=== PATIENT | female | born 1995 | race American Indian/Alaskan Native ===

== ENCOUNTER 2018-12-05 19:05 | Emergency (ER) | payer MEDICAID ==
--- NOTE | 2018-12-05 19:35 | Emergency Department Report ---
Blank Doc - Documentation Documentation: This is a 23-year-old female that presents with pelvic pain and vaginal bleedi ng. Stated is but is not sure how long she is. This initial assessment/diagnostic orders/clinical plan/treatment(s) is/are subject to change based on patient's health status, clinical progression and re- assessment by fellow clinical providers in the ED. Further treatment and workup at subsequent clinical providers discretion. Patient/guardians urged not to elope from the ED as their condition may be serious if not clinically assessed and managed. Initial orders include: 1- Patient sent to [facility] for further evaluation and treatment. 2- labs 3- UA 4- US OB
[2018-12-05] MEDS ORDERED: ZOFRAN ODT PO ONE (19:36)
[2018-12-05] MEDS ORDERED: ZOFRAN ODT ONE (19:38)
[2018-12-05 20:23] LABS: Basophils # (Auto) 0.1 K/mm3 (0.0-0.1); Eosinophils # (Auto) 0.1 K/mm3 (0.0-0.4); Hematocrit 34.8 % (30.3-42.9); Hemoglobin 11.6 gm/dl (10.1-14.3); Lymphocytes # (Auto) 1.9 K/mm3 (1.2-5.4); Lymphocytes % (Auto) 34.7 % (13.4-35.0); Mean Corpuscular HGB Conc 33 % (30-34); Mean Corpuscular Volume 86 fl (79-97); Monocytes # (Auto) 0.4 K/mm3 (0.0-0.8); Monocytes % (Auto) 7.1 % (0.0-7.3); Platelet Count 215 K/mm3 (140-440); Red Blood Count 4.03 M/mm3 (3.65-5.03); Red Cell Distribution Width 14.3 % (13.2-15.2)
[2018-12-05 20:37] LABS: Bacteria,Urine 4+ /HPF (Negative); Bilirubin,Urine NEG (Negative); Blood,Urine NEG (Negative); Color,Urine Amber (Yellow); Mucus,Urine 3+ /HPF
--- NOTE | 2018-12-05 23:05 | Ultrasound Report ---
PROCEDURE: US OB <= 14 WEEKS FETUS TECHNIQUE: PROCEDURE: US OB <= 14 WEEKS FETUS TECHNIQUE: Real-time transabdominal sonography of the uterus, placenta, amniotic fluid, adnexa, and fetus was performed with image documentation. Measurements were obtained to determine age/size. M-mode Doppler was used to document heartbeat. ADDITIONAL GESTATION: None. HISTORY: vaginal bleeding/pelvic pain COMPARISONS: None . FINDINGS: CRL: 7.2 mm, which corresponds to a gestational age of: 6 weeks, 4 days. Yolk Sac: Appropriate for gestational age. . Embryonic Cardiac Activity: 130 bpm . Gestational Sac: Size and shape are appropriate for gestational age Right Ovary: 2.1 x 3.4 x 3.6 cm. Normal in appearance. . Left Ovary: 2.2 x 1.0 x 2.1 cm. Normal in appearance. . Estimated delivery date: . Uterus and adnexa: Normal. IMPRESSION: Single live intrauterine gestation at approximately 6 weeks and 4 days . EDC by US 2019 . This document is electronically signed by Jeet Barrera MD., Dec 05 2018 11:03:09 PM ET
--- NOTE | 2018-12-05 23:07 | Ultrasound Report ---
PROCEDURE: US OB TRANSVAGINAL TECHNIQUE: Real-time transvaginal sonography of the uterus, placenta, amniotic fluid, adnexa, and fe tus was performed with image documentation. Measurements were obtained to determine age/size. M -mode Doppler was used to document heartbeat. ADDITIONAL GESTATION: None. HISTORY: vaginal bleeding/pelvic pain COMPARISONS: None . FINDINGS: CRL: 7.2 mm, which corresponds to a gestational age of: 6 weeks, 4 days. Yolk Sac: Appropriate for gestational age. . Embryonic Cardiac Activity: 130 bpm . Gestational Sac: Size and shape are appropriate for gestational age Right Ovary: 2.1 x 3.4 x 3.6 cm. Normal in appearance. . Left Ovary: 2.2 x 1.0 x 2.1 cm. Normal in appearance. . Estimated delivery date: 07/27/2019 . Uterus and adnexa: Normal. IMPRESSION: Single live intrauterine gestation at approximately 6 weeks and 4 days . EDC by US 2019 . This document is electronically signed by Jeet Barrera MD., Dec 05 2018 11:05:02 PM ET
--- NOTE | 2018-12-05 23:55 | Emergency Department Report ---
ED HPI - General Chief complaint: Abdominal Pain Stated complaint: VAGINAL BLEEDING, ABDOMINAL PAIN Time Seen by Provider: 12/05/18 19:34 Source: patient Mode of arrival: Ambulatory Limitations: No Limitations - History of Present Illness Initial comments: pt is a 23 yo female who presents to the ED with c/o suprapubic abdominal cramping that began 5 days ago. She states she took an at home test which was positive. Pt has associated N/V. She denies any vaginal bleeding, vaginal spotting, or urinary sx. She states her LNMP was in September but is unsure of the date. She has not seen an [facility]ER[facility]. SHe has not been taking a ronel min. denies any PMHx, no daily meds, no allergies to medications. - Related Data Previous Rx's Medication Instructions Recorded Last Taken Type Doxylamine Succinate [Nighttime 10 mg PO DAILY PRN #10 tablet 12/05/18 Unknown Rx Sleep-Aid] Vit-Fe Fumar-FA [ 1 tab PO QDAY #30 tablet 12/05/18 Unknown Rx Vitamin] Pyridoxine HCl (Vitamin B6) 10 mg PO DAILY PRN #10 tablet 12/05/18 Unknown Rx [Pyridoxine HCl] cephALEXin [Keflex] 500 mg PO Q12HR 5 Days #10 cap 12/05/18 Unknown Rx Allergies Allergy/AdvReac Type Severity Reaction Status Date / Time strawberry Allergy Rash Verified 12/05/18 19:39 ED Review of Systems ROS: Stated complaint: VAGINAL BLEEDING, ABDOMINAL PAIN Other details as noted in HPI Comment: All other systems reviewed and negative ED Past Medical Hx - Medications Home Medications: Home Medications Medication Instructions Recorded Confirmed Last Taken Type Doxylamine Succinate [Nighttime 10 mg PO DAILY PRN #10 tablet 12/05/18 Unknown Rx Sleep-Aid] Vit-Fe Fumar-FA [ 1 tab PO QDAY #30 tablet 12/05/18 Unknown Rx Vitamin] Pyridoxine HCl (Vitamin B6) 10 mg PO DAILY PRN #10 tablet 12/05/18 Unknown Rx [Pyridoxine HCl] cephALEXin [Keflex] 500 mg PO Q12HR 5 Days #10 cap 12/05/18 Unknown Rx ED Physical Exam - General Limitations: No Limitations General appearance: alert, in no apparent distress - Head Head exam: Present: atraumatic, normocephalic - Eye Eye exam: Present: normal appearance, PERRL - ENT ENT exam: Present: mucous membranes moist - Respiratory Respiratory exam: Present: normal lung sounds bilaterally. Absent: respiratory distress, wheezes, rales, rhonchi, stridor, chest wall tenderness, accessory m uscle use, decreased breath sounds, prolonged expiratory - Cardiovascular Cardiovascular Exam: Present: regular rate, normal rhythm, normal heart sounds. Absent: systolic murmur, diastolic murmur, rubs, gallop - GI/Abdominal GI/Abdominal exam: Present: soft, normal bowel sounds. Absent: distended, tenderness, guarding, rebound, rigid - Back Exam Back exam: Absent: CVA tenderness (R), CVA tenderness (L) - Neurological Exam Neurological exam: Present: alert, oriented X3 - Psychiatric Psychiatric exam: Present: normal affect, normal mood - Skin Skin exam: Present: warm, dry, intact ED Course Vital Signs 12/05/18 12/06/18 19:12 00:44 Temperature 98.7 F 98.4 F Pulse Rate 81 88 Respiratory 18 Rate Blood Pressure 119/69 Blood Pressure 122/74 [Left] O2 Sat by Pulse 99 Oximetry ED Medical Decision Making - Lab Data Result diagrams: 12/05/18 20:07 Lab Results 12/05/18 12/05/18 12/05/18 Range/Units 19:53 20:07 20:07 WBC 5.4 (4.5-11.0) K/mm3 RBC 4.03 (3.65-5.03) M/mm3 Hgb 11.6 (10.1-14.3) gm/dl Hct 34.8 (30.3-42.9) % MCV 86 (79-97) fl MCH 29 (28-32) pg MCHC 33 (30-34) % RDW 14.3 (13.2-15.2) % Plt Count 215 (140-440) K/mm3 Lymph % (Auto) 34.7 (13.4-35.0) % [place] % (Auto) 7.1 (0.0-7.3) % Eos % (Auto) 1.0 (0.0-4.3) % Baso % (Auto) 1.0 (0.0-1.8) % Lymph # 1.9 (1.2-5.4) K/mm3 [place] # 0.4 (0.0-0.8) K/mm3 Eos # 0.1 (0.0-0.4) K/mm3 Baso # 0.1 (0.0-0.1) K/mm3 Seg Neutrophils % 56.2 (40.0-70.0) % Seg Neutrophils # 3.0 (1.8-7.7) K/mm3 HCG, Quant 10747 H (0-4) mIU/mL Urine Color [place] (Yellow) Urine Turbidity Cloudy (Clear) Urine pH 7.0 (5.0-7.0) Ur Specific [place] 1.021 (1.003-1.030) Urine Protein 30 mg/dl (Negative) mg/dL Urine Glucose (UA) Neg (Negative) mg/dL Urine Ketones 20 (Negative) mg/dL Urine Blood Neg (Negative) Urine Nitrite Pos (Negative) Urine Bilirubin Neg (Negative) Urine Urobilinogen 2.0 (<2.0) mg/dL Ur Leukocyte Esterase Sm (Negative) Urine WBC (Auto) 39.0 H (0.0-6.0) /HPF Urine RBC (Auto) 3.0 (0.0-6.0) /HPF U Epithel Cells (Auto) 14.0 H (0-13.0) /HPF Urine Bacteria (Auto) 4+ (Negative) /HPF Urine Mucus 3+ /HPF Blood Type Antibody Screen 12/05/18 Range/Units 20:07 WBC (4.5-11.0) K/mm3 RBC (3.65-5.03) M/mm3 Hgb (10.1-14.3) gm/dl Hct (30.3-42.9) % MCV (79-97) fl MCH (28-32) pg MCHC (30-34) % RDW (13.2-15.2) % Plt Count (140-440) K/mm3 Lymph % (Auto) (13.4-35.0) % [place] % (Auto) (0.0-7.3) % Eos % (Auto) (0.0-4.3) % Baso % (Auto) (0.0-1.8) % Lymph # (1.2-5.4) K/mm3 [place] # (0.0-0.8) K/mm3 Eos # (0.0-0.4) K/mm3 Baso # (0.0-0.1) K/mm3 Seg Neutrophils % (40.0-70.0) % Seg Neutrophils # (1.8-7.7) K/mm3 HCG, Quant (0-4) mIU/mL Urine Color (Yellow) Urine Turbidity (Clear) Urine pH (5.0-7.0) Ur Specific [place] (1.003-1.030) Urine Protein (Negative) mg/dL Urine Glucose (UA) (Negative) mg/dL Urine Ketones (Negative) mg/dL Urine Blood (Negative) Urine Nitrite (Negative) Urine Bilirubin (Negative) Urine Urobilinogen (<2.0) mg/dL Ur Leukocyte Esterase (Negative) Urine WBC (Auto) (0.0-6.0) /HPF Urine RBC (Auto) (0.0-6.0) /HPF U Epithel Cells (Auto) (0-13.0) /HPF Urine Bacteria (Auto) (Negative) /HPF Urine Mucus /HPF Blood Type A POSITIVE Antibody Screen Negative - Radiology Data Radiology results: report reviewed PROCEDURE: US OB <= 14 WEEKS FETUS TECHNIQUE: PROCEDURE: US OB <= 14 WEEKS FETUS TECHNIQUE: Real-time transabdominal sonography of the uterus, placenta, amniotic fluid, adnexa, and fetus was performed with image documentation. Measurements were obtained to determine age/size. M-mode Doppler was used to document heartbeat. ADDITIONAL GESTATION: None. HISTORY: vaginal bleeding/pelvic pain COMPARISONS: None . FINDINGS: CRL: 7.2 mm, which corresponds to a gestational age of: 6 weeks, 4 days. Yolk Sac: Appropriate for gestational age. . Embryonic Cardiac Activity: 130 bpm . Gestational Sac: Size and shape are appropriate for gestational age Right Ovary: 2.1 x 3.4 x 3.6 cm. Normal in appearance. . Left Ovary: 2.2 x 1.0 x 2.1 cm. Normal in appearance. . Estimated delivery date: . Uterus and adnexa: Normal. IMPRESSION: Single live intrauterine gestation at approximately 6 weeks and 4 days . EDC by 07/27/2019 . This document is electronically signed by Juan Barrera MD., Dec 05 2018 11:03:09 PM ET Transcribed By: UBC Dictated By: JUAN BARRERA B Electronically Authenticated By: JUAN BARRERA Signed Date/Time: 12/05/18 [id number] - Medical Decision Making pt is a 23 yo female who presents to the ED with c/o suprapubic abdominal cramping that began 5 days ago. She states she took an at home test which was positive. Pt has associated N/V. She denies any vaginal bleeding, vaginal spotting, or urinary sx. She states her LNMP was in September but is unsure of the date. She has not seen an [facility] HEALTH THERAPIST. SHe has not been taking a vitamin. denies any PMHx, no daily meds, no allergies to medications. US: Single live intrauterine gestation at approximately 6 weeks and 4 days . EDC by US 07/27/2019 . UA shows evidence of UTI. Pt is in first trimester given keflex. discussed to take all medication as prescribed. Follow up with [facility] HE[facility] THERAPIST and PCP in the next 2-3 days. return to the emergency room for any new or worsening symptoms. pt also given vitamin discussed to take daily. also, given diclegis split into its two components due to cost and discussed to take together for N/V. Critical care attestation.: If time is entered above; I have spent that time in minutes in the direct care of this critically ill patient, excluding procedure time. ED Disposition Clinical Impression: UTI (urinary tract infection) Qualifiers: Urinary tract infection type: acute cystitis Hematuria presence: without hematuria Qualified Code(s): N30.00 - Acute cystitis without hematuria Qualifiers: Weeks of gestation: less than 8 weeks Qualified Code(s): Z3A.01 - Less than 8 weeks gestation of Disposition: DC-01 TO HOME OR SELFCARE Is pt being admited?: No Does the pt Need Aspirin: No Condition: Stable Instructions: Morning Sickness (ED), (ED), Urinary Tract Infection in Women (ED) Additional Instructions: Please follow up with a [facility]ISIS MENTAL HEALTH THERAPIST in the next 2-3 days. Please take all medication as prescribed. Return to the emergency room for any new or worsening symptoms. please drink plenty of water Prescriptions: cephALEXin [Keflex] 500 mg PO Q12HR 5 Days #10 cap Doxylamine Succinate [Nighttime Sleep-Aid] 10 mg PO DAILY PRN #10 tablet PRN Reason: Nausea And Vomiting Vit-Fe Fumar-FA [ Vitamin] 1 tab PO QDAY #30 tablet Pyridoxine HCl (Vitamin B6) [Pyridoxine HCl] 10 mg PO DAILY PRN #10 tablet PRN Reason: Nausea And Vomiting Referrals: [facility] [Provider Group] - 2-3 Days [facility] [Provider Group] - 2-3 Days [place] ARNULFO WELCH MD [Primary Care Provider] - 2-3 Days Time of Disposition: 23:55 Print Language: PUERTO RICAN
[2018-12-06] MEDS ORDERED: ZOFRAN ODT ONE (00:41)
[2018-12-06] MEDS ORDERED: ZOFRAN ODT PO ONE (00:42)
[2018-12-06 00:46] VITALS: BP 122/74
== END 2018-12-06 00:44 | disposition home or self-care (01) ==
LOC: ED 19:05
DX: O23.41 Unspecified infection of urinary tract in pregnancy, first trimester (principal); Z3A.01 Less than 8 weeks gestation of pregnancy; Z91.018 Allergy to other foods
CPT/HCPCS: 36415; 76801; 76817; 81001; 84702; 85025; 86850; 86900; 86901; 99284; Q0162

== ENCOUNTER 2019-02-25 12:47 | Emergency (ER) | payer MEDICAID ==
--- NOTE | 2019-02-25 13:30 | Event Note ---
ED Screening Note Date of service: 02/25/19 Time: 13:29 ED Screening Note: This is a 23 y.o. F. that presents to the ER with pelvic pain, hematuria, and vaginal discharge for 2 weeks. 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 17 weeks gestation. LMP A0 Reports unprotected intercourse and possible STD. This initial assessment/diagnostic orders/clinical plan/treatment(s) is/are subject to change based on patients health status, clinical progression and re- assessment by fellow clinical providers in the ED. Further treatment and workup at subsequent clinical providers discretion. Patient/guardian urged not to elope from the ED as their condition may be serious if not clinically assessed and managed. Initial orders include: Labs and OB US
[2019-02-25 13:32] VITALS: BP 107/68
[2019-02-25 14:02] LABS: Basophils % (Auto) 0.8 % (0.0-1.8); Eosinophils % (Auto) 0.6 % (0.0-4.3); Hematocrit 31.3 % (30.3-42.9); Hemoglobin 10.5 gm/dl (10.1-14.3); Lymphocytes # (Auto) 1.1 K/mm3 (1.2-5.4); Lymphocytes % (Auto) 31.2 % (13.4-35.0); Mean Corpuscular HGB Conc 34 % (30-34); Mean Corpuscular Volume 87 fl (79-97); Monocytes # (Auto) 0.3 K/mm3 (0.0-0.8); Monocytes % (Auto) 7.2 % (0.0-7.3); Platelet Count 191 K/mm3 (140-440); Red Blood Count 3.61 M/mm3 (3.65-5.03); Red Cell Distribution Width 12.9 % (13.2-15.2)
[2019-02-25 14:12] LABS: Bilirubin,Urine NEG (Negative); Blood,Urine NEG (Negative); Color,Urine Yellow (Yellow); Mucus,Urine 3+ /HPF; Protein,Urine <15 mg/dL mg/dL (Negative)
[2019-02-25 14:18] LABS: Bacteria,Urine 3+ /HPF (Negative)
[2019-02-25] MEDS ORDERED: ROCEPHIN IM ONE (15:09)
[2019-02-25] MEDS ORDERED: FLAGYL PO ONE (15:09)
[2019-02-25] MEDS ORDERED: XYLOCAINE 1% MPF 5 mL INFILTRATI ONE (15:09)
[2019-02-25] MEDS ORDERED: ZITHROMAX PO ONE (15:09)
--- NOTE | 2019-02-25 15:45 | Emergency Department Report ---
ED Abdominal Pain HPI - General Chief Complaint: Abdominal Pain Stated Complaint: POSS STD Time Seen by Provider: 02/25/19 13:29 Source: patient Mode of arrival: Ambulatory Limitations: No Limitations - History of Present Illness Initial Comments: Patient is a 23-year-old female who is presenting with 2 weeks of lower abdominal discomfort and vaginal discharge. Patient states that she is worried about STDs. Patient denies dysuria or abnormal vaginal bleeding. Patient presents with 5 months . Severity scale (0 -10): 5 Quality: cramping Consistency: constant Improves With: nothing Worsens With: nothing - Related Data Previous Rx's Medication Instructions Recorded Last Taken Type Doxylamine Succinate [Nighttime 10 mg PO DAILY PRN #10 tablet 12/05/18 Unknown Rx Sleep-Aid] Vit-Fe Fumar-FA [ 1 tab PO QDAY #30 tablet 12/05/18 Unknown Rx Vitamin] Pyridoxine HCl (Vitamin B6) 10 mg PO DAILY PRN #10 tablet 12/05/18 Unknown Rx [Pyridoxine HCl] cephALEXin [Keflex] 500 mg PO Q12HR 5 Days #10 cap 12/05/18 Unknown Rx Nitrofurantoin [place]/M-Cryst 100 mg PO Q12HR #14 capsule 02/25/19 Unknown Rx [Macrobid CAP] Allergies Allergy/AdvReac Type Severity Reaction Status Date / Time strawberry Allergy Rash Verified 02/25/19 12:53 ED Review of Systems ROS: Stated complaint: POSS STD Other details as noted in HPI Comment: All other systems reviewed and negative ED Past Medical Hx - Past Medical History Previous Medical History?: No - Surgical History Past Surgical History?: No - Social History Smoking Status: Never Smoker Substance Use Type: None - Medications Home Medications: Home Medications Medication Instructions Recorded Confirmed Last Taken Type Doxylamine Succinate [Nighttime 10 mg PO DAILY PRN #10 tablet 12/05/18 Unknown Rx Sleep-Aid] Vit-Fe Fumar-FA [ 1 tab PO QDAY #30 tablet 12/05/18 Unknown Rx Vitamin] Pyridoxine HCl (Vitamin B6) 10 mg PO DAILY PRN #10 tablet 12/05/18 Unknown Rx [Pyridoxine HCl] cephALEXin [Keflex] 500 mg PO Q12HR 5 Days #10 cap 12/05/18 Unknown Rx Nitrofurantoin [place]/M-Cryst 100 mg PO Q12HR #14 capsule 02/25/19 Unknown Rx [Macrobid CAP] ED Physical Exam - General Limitations: No Limitations General appearance: alert, in no apparent distress - Head Head exam: Present: atraumatic, normocephalic - Eye Eye exam: Present: normal appearance - ENT ENT exam: Present: mucous membranes moist - Neck Neck exam: Present: normal inspection - Respiratory Respiratory exam: Present: normal lung sounds bilaterally. Absent: respiratory distress, wheezes, rales, rhonchi - Cardiovascular Cardiovascular Exam: Present: regular rate, normal rhythm. Absent: systolic murmur, diastolic murmur, rubs, gallop - GI/Abdominal GI/Abdominal exam: Present: soft, tenderness (suprapubic), normal bowel sounds. Absent: distended, guarding, rebound - Speculum exam: Present: vaginal discharge, cervical discharge. Absent: vaginal bleeding, tissue Bi-manual exam: Absent: cervical motion tendernes - Extremities Exam Extremities exam: Present: normal inspection - Back Exam Back exam: Present: normal inspection - Neurological Exam Neurological exam: Present: alert, oriented X3 - Psychiatric Psychiatric exam: Present: normal affect, normal mood - Skin Skin exam: Present: warm, dry, intact, normal color. Absent: rash ED Course Vital Signs 02/25/19 13:28 Temperature 99.1 F Pulse Rate 78 Respiratory 16 Rate Blood Pressure 107/68 Blood Pressure 107/68 [Left] O2 Sat by Pulse 99 Oximetry ED Medical Decision Making - Lab Data Result diagrams: 02/25/19 13:47 Wet prep shows the patient does have clue cells as well as polymorphonuclear cells that are moderate Lab Results 02/25/19 02/25/19 02/25/19 Range/Units 13:46 13:47 13:47 WBC 3.6 L (4.5-11.0) K/mm3 RBC 3.61 L (3.65-5.03) M/mm3 Hgb 10.5 (10.1-14.3) gm/dl Hct 31.3 (30.3-42.9) % MCV 87 (79-97) fl MCH 29 (28-32) pg MCHC 34 (30-34) % RDW 12.9 L (13.2-15.2) % Plt Count 191 (140-440) K/mm3 Lymph % (Auto) 31.2 (13.4-35.0) % [place] % (Auto) 7.2 (0.0-7.3) % Eos % (Auto) 0.6 (0.0-4.3) % Baso % (Auto) 0.8 (0.0-1.8) % Lymph # 1.1 L (1.2-5.4) K/mm3 [place] # 0.3 (0.0-0.8) K/mm3 Eos # 0.0 (0.0-0.4) K/mm3 Baso # 0.0 (0.0-0.1) K/mm3 Seg Neutrophils % 60.2 (40.0-70.0) % Seg Neutrophils # 2.1 (1.8-7.7) K/mm3 HCG, Quant 02710 H (0-4) mIU/mL Urine Color Yellow (Yellow) Urine Turbidity Cloudy (Clear) Urine pH 6.0 (5.0-7.0) Ur Specific [place] 1.018 (1.003-1.030) Urine Protein <15 mg/dl (Negative) mg/dL Urine Glucose (UA) Neg (Negative) mg/dL Urine Ketones 80 (Negative) mg/dL Urine Blood Neg (Negative) Urine Nitrite Pos (Negative) Urine Bilirubin Neg (Negative) Urine Urobilinogen 2.0 (<2.0) mg/dL Ur Leukocyte Esterase Lg (Negative) Urine WBC (Auto) 19.0 H (0.0-6.0) /HPF Urine RBC (Auto) 2.0 (0.0-6.0) /HPF U Epithel Cells (Auto) 14.0 H (0-13.0) /HPF Urine Bacteria (Auto) 3+ (Negative) /HPF Urine Mucus 3+ /HPF - Medical Decision Making The patient will be treated for STI is. Patient also has a urinary tract infection will be started on Macrobid. Patient discharged home. Critical care attestation.: If time is entered above; I have spent that time in minutes in the direct care of this critically ill patient, excluding procedure time. ED Disposition Clinical Impression: Acute cervicitis UTI in Qualifiers: Trimester: second trimester Qualified Code(s): O23.42 - Unspecified infection of urinary tract in , second trimester Disposition: TO HOME OR SELFCARE Is pt being admited?: No Does the pt Need Aspirin: No Condition: Stable Instructions: Cervicitis (ED), Urinary Tract Infection in Women (ED) Referrals: ARNULFO ARIZMENDI MD [Primary Care Provider] - 3-5 Days Forms: STI Treatment and Prevention Time of Disposition: 15:44
== END 2019-02-25 16:10 | disposition home or self-care (01) ==
LOC: ED 12:47
DX: O23.42 Unspecified infection of urinary tract in pregnancy, second trimester (principal); Z3A.20 20 weeks gestation of pregnancy; Z91.018 Allergy to other foods; Z79.899 Other long term (current) drug therapy
CPT/HCPCS: 36415; 81001; 84702; 85025; 87076; 87086; 87186; 87210; 87591; 96372; 99284; J0696

== ENCOUNTER 2019-06-22 14:01 | Outpatient (CLI) | payer MEDICAID ==
[2019-06-22] MEDS ORDERED: LACTATED RINGERS 500 ML IV ONE (16:03)
[2019-06-22] MEDS ORDERED: LACTATED RINGERS 1,000 ML IV ONE (16:23)
[2019-06-22] MEDS ORDERED: ONDANSETRON 4 MG/2 ML INJ IV ONE (16:28)
[2019-06-22] MEDS ORDERED: guaiFENesin DM 200/20 MG ORAL LIQD 10 ML PO PRN ×2 (16:28→18:44)
[2019-06-22 16:31] LABS: Bacteria,Urine 1+ /HPF (Negative); Bilirubin,Urine NEG (Negative); Blood,Urine NEG (Negative); Color,Urine Yellow (Yellow); Mucus,Urine 1+ /HPF; Protein,Urine <15 mg/dL mg/dL (Negative)
--- NOTE | 2019-06-22 17:44 | Event Note ---
Date: 06/22/19 pt with care at [facility] presented with c/o cough x 2 days, vomiting x 3 weeks and sternal pain when she coughs or vomits. denies fever, diarrhea or exposure to the flu. EDC by 6w u/s [facility] 07[facility]27[facility]19. Pt reports seeing her provider approx 1 month ago and she does not have a future appointment scheduled. Pt states she did not call provider. IVFs in progress, patient has received dose of zofran. Nurse to collect flu swab. trace ketones in UA, no s/s UTI. FHT Cat 1, no regular ctx noted on toco.
--- NOTE | 2019-06-22 18:31 | Event Note ---
Date: 06/22/19 rapid flu test negative, patient reports feeling better since medication administration. RX given for robitussin, Tylenol and zofran. Patient states she is happy to be going home. Pt and s/o given opportunity to ask questions, all questions addressed. Encouraged patient to f/u with provider at [place] and list of providers at [facility] given to patient.
[2019-06-22 18:49] LABS: Amphetamine Screen,Urine PRESUMPTIVE NEGATIVE; Benzodiazepines Screen,Urine PRESUMPTIVE NEGATIVE; Cocaine Screen,Urine PRESUMPTIVE NEGATIVE; Methadone Screen,Urine PRESUMPTIVE NEGATIVE; Opiate Screen,Urine PRESUMPTIVE NEGATIVE
[2019-06-22 19:05] LABS: Cannabinoid Screen,Urine PRESUMPTIVE POSITIVE
== END 2019-06-22 18:56 | disposition home or self-care (01) ==
LOC: TRG 14:01
PROVIDERS: ATTEND Obstetrics & Gynecology
DX: O21.2 Late vomiting of pregnancy (principal); O26.893 Other specified pregnancy related conditions, third trimester; R10.13 Epigastric pain; R10.30 Lower abdominal pain, unspecified; R07.89 Other chest pain; O47.1 False labor at or after 37 completed weeks of gestation; O99.513 Diseases of the respiratory system complicating pregnancy, third trimester; J34.89 Other specified disorders of nose and nasal sinuses; O99.323 Drug use complicating pregnancy, third trimester; F12.90 Cannabis use, unspecified, uncomplicated; Z3A.37 37 weeks gestation of pregnancy
CPT/HCPCS: 59025; 80307; 81001; 87400; 96374; J2405; J7120; 96360; 96376